=== PATIENT | male | born 1945 | race Caucasian/White ===

== ENCOUNTER → 2018-08-26 | Outpatient (CLI) | END | disposition home or self-care (01) ==

== ENCOUNTER 2018-12-27 13:58 | Inpatient (IN) | payer MEDICARE, BC ==
[~2018-12-27] VITALS: Ht 167.6 cm; Wt 62.2 kg
[~2018-12-27 13:58] MED LIST: GABA-526 PO; LISI-313 PO; TRA100 PO; ambien; atenolol; crestor; lisinopril
--- NOTE | 2018-12-27 14:19 | ERD ---
ER Documentation Chief Complaint Chief Complaint Trip and fall laceration to right eyebrow and back of head. No KO HPI The patient is a 73-year-old male, presenting to the ER because he tripped and fell, hit the right side of the head and the face on the floor shortly prior to arrival. He denies syncope, near syncope, blurred vision, neck pain, chest pain, dyspnea, abdominal pain, vomiting, dysuria. He does not smoke nor drink Past medical history: Hypertension, dyslipidemia, CAD, history of Graves' disease, hypothyroidism, insomnia Past surgical history: CABG, bilateral eyelid surgery due to ptosis ROS All systems reviewed and are negative except as per history of present illness. Medications Home Meds Reported Medications Ropinirole Hcl* (Ropinirole Hcl*) 1 Mg Tablet, 1 MG PO BID, TAB 12/27/18 Atenolol* (Atenolol*) 25 Mg Tablet, 25 MG PO DAILY, #30 TAB 12/27/18 Discontinued Reported Medications Lisinopril* (Lisinopril*) 5 Mg Tablet, 5 MG PO DAILY 03/02/13 Trazodone Hcl* (Trazodone Hcl*) 100 Mg Tablet, 200 MG PO HS, #1 03/02/13 Gabapentin* (Gabapentin*) 600 Mg Tablet, 600 MG PO HS 03/02/13 [ambien] No Conflict Check 02/27/13 [crestor] No Conflict Check 02/27/13 [lisinopril] No Conflict Check 02/27/13 [atenolol] No Conflict Check 02/27/13 Allergies Allergies: Coded Allergies: rosuvastatin calcium (Verified Adverse Reaction, Severe, RHABDOMYOLISIS, 12/27/18) PMhx/Soc History of Surgery: Yes (multiple bypass surgeries) Anesthesia Reaction: No Hx Neurological Disorder: No Hx Respiratory Disorders: No Hx Cardiac Disorders: Yes (multiple bypass surgeries, hyperthyroid) Hx Psychiatric Problems: No Hx Alcohol Use: No Hx Substance Use: No Hx Tobacco Use: No Smoking Status: Never smoker Physical Exam Vitals Vital Signs Date Temp Pulse Resp B/P (MAP) Pulse Ox O2 O2 Flow FiO2 Time Delivery Rate 12/27/18 53 14 152/76 100 Nasal 2.0 16:13 (101) Cannula 12/27/18 53 17 167/86 100 Room Air 15:11 (113) 12/27/18 97.9 52 18 161/89 99 14:07 (113) Physical Exam Const: No acute distress. Head: Atraumatic. All right occipital hematoma, no laceration Eyes: Normal Conjunctiva. Right upper eyelid 4 cm laceration with mild bleeding, no nystagmus ENT: Normal External Ears, Nose and Mouth. Neck: Full range of motion. No meningismus. Resp: Clear to auscultation bilaterally. Cardio: Regular rate and rhythm. Abd: Soft, non distended, normal bowel sounds, non tender. Skin: No petechiae or rashes. Back: No midline or flank tenderness. Ext: No cyanosis, or edema. Neur: Awake and alert. No focal deficit Psych: Normal Mood and Affect. Result Diagram: 12/27/18 1520 12/27/18 1520 Results 24 hrs Laboratory Tests Test 12/27/18 15:20 White Blood Count 6.7 10^3/ul Red Blood Count 4.44 10^6/ul Hemoglobin 13.7 g/dl Hematocrit 41.4 % Mean Corpuscular Volume 93.2 fl Mean Corpuscular Hemoglobin 30.9 pg Mean Corpuscular Hemoglobin Concent 33.1 g/dl Red Cell Distribution Width 11.7 % Platelet Count 210 10^3/UL Mean Platelet Volume 10.0 fl Immature Granulocytes % 0.400 % Neutrophils % 71.3 % Lymphocytes % 18.3 % Monocytes % 6.3 % Eosinophils % 2.8 % Basophils % 0.9 % Nucleated Red Blood Cells % 0.0 /100WBC Immature Granulocytes # 0.030 10^3/ul Neutrophils # 4.8 10^3/ul Lymphocytes # 1.2 10^3/ul Monocytes # 0.4 10^3/ul Eosinophils # 0.2 10^3/ul Basophils # 0.1 10^3/ul Nucleated Red Blood Cells # 0.0 10^3/ul Prothrombin Time 12.7 Sec Prothrombin Time Ratio 1.0 INR International Normalized Ratio 0.94 Activated Partial Thromboplast Time 27.2 Sec Sodium Level 137 mmol/L Potassium Level 5.1 mmol/L Chloride Level 98 mmol/L Carbon Dioxide Level 30 mmol/L Anion Gap 9 Blood Urea Nitrogen 26 mg/dl Creatinine 1.67 mg/dl Est Glomerular Filtrat Rate mL/min mL/min Glucose Level 119 mg/dl Calcium Level 9.5 mg/dl Current Medications Medications Dose Sig/Harrison Start Time Status Last (Trade) Ordered Route PRN Stop Time Admin Dose Reason Admin Diphtheria/ 0.5 ml ONCE ONCE 12/27/18 DC 12/27/18 Tetanus/Acell IM* 15:00 15:10 Pertussis 12/27/18 15:01 (Adacel) Ondansetron 4 mg ONCE STAT 12/27/18 DC 12/27/18 HCl (Zofran IV 14:58 15:09 Inj) 12/27/18 14:59 Sodium 1,000 ml ONCE STAT 12/27/18 DC Chloride IRR 16:35 (NS (Irrig)) 12/27/18 16:36 Lidocaine/ 20 ml ONCE STAT 12/27/18 DC Epinephrine INJ 16:35 (Xylocaine 12/27/18 16:36 2%/ Epi Mpf(Sdv)) Procedures/[place] [address] Radiology Main Line: [phone] DIAGNOSTIC IMAGING REPORT Patient: ZEN COE : 1945 Age: 73 Sex: M MR #: [id number] DOS: 12/27/18 1407 Ordering MD: KEILA THOMSON MD Location: E/R Room/Bed: PROCEDURE: Noncontrast CT Head. CLINICAL INDICATION: Trauma. Status post fall. TECHNIQUE: Noncontrast CT of the head was obtained. The administered radiation dose was CTDI vol = 39.49 mGy, DLP = 634.23 mGy-cm. One or more of the following dose reduction techniques were used: Automated exposure control, Adjustment of the mA and/or kV according to patient size, or Use of iterative reconstruction technique. DICOM images are available. COMPARISON: There are no similar studies submitted for comparison. FINDINGS: There is mild to moderate generalized cerebral volume loss. There is minimal periventricular hypoattenuation suggesting chronic microvascular ischemic changes. There are moderate vascular calcifications within the intracranial carotid arteries. There is no loss of ire[place]-white differentiation to suggest acute territorial i nfarction. There is an acute right tentorial subdural hemorrhage measuring up to 2 mm (image 82 series 601). No midline shift is identified. The orbits are within normal limits. There is mild to moderate bilateral ethmoid sinus mucosal thickening. There is mild left sphenoid sinus mucosal thickening. There is left maxillary sinus mucoperiosteal thickening suggesting chronic sinusitis/osteitis. There is right supraorbital scalp subcutaneous hematoma. No destructive osseous lesion is identified. IMPRESSION: 1. Acute 2 mm right tentorial subdural hemorrhage. 2. Mild to moderate generalized cerebral volume loss. 3. Minimal chronic microvascular ischemic changes. 4. There is right supraorbital scalp subcutaneous hematoma. Further findings as detailed above. Critical findings were discussed with Dr. Brooks on 12/27/2018 at 2:55 PM. RPTAT: PP .Romaine Akins MD, Date Time Electronically viewed and signed by .Romaine Akins MD, MD on 12/27/2018 14:58 .F/ CC: KEILA THOMSON MD [phone] [place] [address] Radiology Main Line: [phone] DIAGNOSTIC IMAGING REPORT Patient: ZEN COE : 1945 Age: 73 Sex: M [id number] [id number] DOS: 12/27/18 1407 Ordering MD: KEILA THOMSON MD Location: E/R Room/Bed: PROCEDURE: CT Cervical Spine without contrast. CLINICAL INDICATION: Neck pain. Trauma. TECHNIQUE: Noncontrast CT of the cervical spine was performed with axial images. Coronal and sagittal images were also performed. The administered radiation dose was CTDI vol = 22.32 mGy, DLP = 594.11 mGy-cm. One or more of the following dose reduction techniques were used: Automated exposure control, Adjustment of the mA and/or kV according to patient size, or Use of iterative reconstruction technique. DICOM images are available. COMPARISON: There are no similar studies submitted for comparison. FINDINGS: There is reversal of the cervical lordosis suggesting muscle spasm and/or degenerative changes. The vertebral body heights are maintained. There is no destructive osseous lesion. No acute fracture is identified. C2-C3 : There is moderate disc space narrowing. There is 1 mm circumferential disc osteophyte complex without spinal canal stenosis. There is severe left and moderate facet arthropathy and bilateral uncovertebral hypertrophy causing se paula left with mild to moderate right foraminal stenosis. This affects the exiting left C3 nerve root. C3-C4 : There is severe disc space narrowing. There is trace anterolisthesis a broad-based pseudo disc osteophyte complex with mild to moderate spinal canal stenosis. There is moderate facet arthropathy and bilateral uncovertebral hypertrophy causing severe bilateral foraminal stenosis. This affects the exiting bilateral C4 nerve roots. C4-C5 : There is severe disc space narrowing. There is trace retrolisthesis with a broad-based disc osteophyte complex impinging the spinal cord with severe spinal canal stenosis. There is moderate facet arthropathy and bilateral uncovertebral hypertrophy causing severe bilateral foraminal stenosis. This affects the exiting bilateral C5 nerve roots. C5-C6 : There is severe disc space narrowing. There is a 3 mm broad-based disc osteophyte complex impinging the spinal cord with severe spinal canal stenosis. There is moderate facet arthropathy and bilateral uncovertebral hypertrophy causing severe bilateral foraminal stenosis. This affects the exiting bilateral C6 nerve roots. C6-C7 : There is severe disc space narrowing. There is a 3 mm circumferential disc osteophyte complex impinging the spinal cord with severe spinal canal stenosis. There is moderate facet arthropathy and bilateral uncovertebral hypertrophy causing severe bilateral foraminal stenosis. This affects the exiting bilateral C7 nerve roots. C7-T1 : There is no disc herniation or spinal canal stenosis. There is mild bilateral facet arthropathy without bilateral foraminal stenosis. Sternotomy wires are noted. IMPRESSION: 1. No acute fracture or subluxation. 2. Multilevel spinal canal stenosis with severe C4-C5, C5-C6, and C6-C7 spinal canal stenosis. There is limited evaluation of the spinal cord on CT. If clinically concerned for spinal cord contusion, noncontrast MRI of the cervical spine may be performed as clinically warranted. 3. Multilevel bilateral foraminal stenosis affecting the exiting left T3, bilateral C4, bilateral C5, bilateral C6, and bilateral C7 nerve roots as detailed above. 4. Reversal of the cervical lordosis suggesting muscle spasm and/or degenerative changes. Further findings as detailed above. RPTAT: PP .Romaine Akins MD, MD Date Time Electronically viewed and signed by .Romaine Akins MD, MD on 12/27/2018 15:12 .F/ CC: KEILA THOMSON MD [id number] [place] [address] Radiology Main Line: [phone] DIAGNOSTIC IMAGING REPORT Patient: ZEN COE : 1945 Age: 73 Sex: M MR #: [id number] DOS: 12/27/18 1407 Ordering MD: KEILA THOMSON MD Location: E/R Room/Bed: PROCEDURE: Noncontrast CT facial bones. CLINICAL INDICATION: Trauma. Status post fall. TECHNIQUE: Noncontrast CT of the facial bones was obtained. Coronal and sagittal re-formations were provided. The administered radiation dose was CTDI vol = 29.33 mGy, DLP = 559.96 mGy-cm. One or more of the following dose reduction techniques were used: Automated exposure control, Adjustment of the mA and/or kV according to patient size, or Use of iterative reconstruction technique. DICOM images are available. COMPARISON: There are no similar studies submitted for comparison. FINDINGS: OSSEOUS STRUCTURES: There is no acute fracture. No destructive osseous lesion is identified. ORBITS: The bilateral globes are intact. There is no orbital hematoma. SINUSES: There is mild to moderate bilateral ethmoid sinus mucosal thickening. There is mild left sphenoid sinus mucosal thickening. There is left maxillary sinus mucoperiosteal thickening suggesting chronic sinusitis. There is a nasal septal defect. The patient is status post bilateral uncinectomies/middle turbinectomies. SKULL: Please refer to the noncontrast CT of the head report from the same day. IMPRESSION: 1. No acute fracture. 2. The bilateral globes are intact without orbital hematoma. 3. Right supraorbital scalp subcutaneous hematoma. 4. Nasal septal defect. The patient is status post bilateral uncinectomies/middle turbinectomies. Correlate clinically. 5. Chronic left maxillary sinusitis/osteitis. Further findings as detailed above. RPTAT: PP .Romaine Akins MD, Date Time Electronically viewed and signed by .Romaine Akins MD, on 12/27/2018 15:05 .F/ CC: KEILA THOMSON MD [phone] MEDICAL MAKING DECISION: The patient is a 73-year-old male, presenting with acute subdural hematoma, acute right eyelid laceration and acute scalp hematoma, acute kidney injury. He was treated with Tdap IM and Zofran IV for nausea The differential diagnoses considered include but are not limited to subarachnoid hemorrhage, occult trauma, CVA, meningitis, encephalitis, hypertension, tension, migraine, cluster, narcotic withdrawal, cervical spine disease. Consultation: I discussed the patient with the on-call neurosurgeon Dr. Ordoñez at 3:25 PM, who was made aware of the lab, the treatment and the patient conditi on. He recommended admitting the patient to telemetry for 24 hours observation Laceration Repair by me: Anesthesia: 1% with epi lidocaine locally Location: rt upper eyelid Tendon/Joint/Nerves: No injury Foreign body: None detected after copious irrigation and exploration Technique: Simple Interrupted Sutures Complexity: No subcutaneous sutures/mucosal repair/edge excision Post Closure Length: 4cm Patient's bleeding was easily controlled in the department and there is no ind ication of anemia. No evidence of compartment syndrome, neurologic injury, vascular injury, open joint, tendon laceration, or foreign body. Patient is appropriate for outpatient follow up. 48 hour wound check. Scar minimization instructions given. Departure Diagnosis: Primary Impression: Subdural hematoma Additional Impressions: Eyelid laceration, right GMEA (acute kidney injury) Anemia Condition: Stable Comments I discussed the findings with the patient. I discussed the patient with his physician Dr. Carrera at 4:10 PM. who was made aware of the lab, the tr eatment, the patient condition. The patient is admitted to Tel Obs Disclaimer: Inadvertent spelling and grammatical errors are likely due to EHR/dictation software use and do not reflect on the overall quality of patient care. Also, please note that the electronic time recorded on this note does not necessarily reflect the actual time of the patient encounter. NNAMDI MALCOLM MD Dec 27, 2018 14:19
[2018-12-27] MEDS ORDERED: ATEN-51 PO (14:23)
[2018-12-27] MEDS ORDERED: ROPI1TAB PO (14:23)
[2018-12-27] MEDS ORDERED: ONDANSETRON 4 MG INJ IV STA (14:58)
[2018-12-27] MEDS ORDERED: DIPHTH/TET/ACEL PERTUSS (ADULT) 0.5 ML VIAL IM* ONE (15:00)
[2018-12-27] MEDS ORDERED: LIDOCAINE 2%/EPI MPF (SDV) 20 ML VIAL INJ STA (16:35)
[2018-12-27] MEDS ORDERED: SODIUM CHLORIDE 0.9% 1L IRRIG IRR STA (16:35)
[2018-12-27] MEDS ORDERED: 1/2 NS + KCL 20 MEQ 1,000 ML IV SCH (17:16)
[2018-12-27] MEDS ORDERED: NITROGLYCERIN (SL) 0.4 MG TAB SL PRN (17:30)
[2018-12-27] MEDS ORDERED: LORAZEPAM 2 MG INJ IV PRN (17:30)
[2018-12-27] MEDS ORDERED: ACETAMINOPHEN 325 MG TAB PO PRN (17:30)
[2018-12-27] MEDS ORDERED: ONDANSETRON 4 MG INJ IV PRN (17:30)
[2018-12-27] MEDS ORDERED: DOCUSATE SODIUM 100 MG CAP PO PRN (17:30)
[2018-12-27] MEDS ORDERED: ZOLPIDEM 5 MG TAB PO PRN (17:30)
[2018-12-27 18:46] VITALS: BP 152/75; PULSE 54; PULSE 61; RESP 18
[2018-12-27 19:50] VITALS: Ht 167.6 cm; Wt 62.2 kg
[2018-12-27 20:00] VITALS: BP 136/69; PULSE 58; PULSE 61; RESP 19
[2018-12-27] MEDS ORDERED: PREGABALIN 75 MG CAP PO ONE (21:00)
[2018-12-27] MEDS ORDERED: ROPINIROLE 1 MG TAB PO SCH ×2 (21:00)
[2018-12-27] MEDS ORDERED: traZODone 100 MG TAB PO SCH (21:00)
--- NOTE | 2018-12-27 21:35 | HP ---
DATE OF ADMISSION: 12/27/2018 HISTORY OF PRESENT ILLNESS: This is one of several [facility] admissions for this 73-year-old gentleman admitted with a chief complaint of trip and fall sustaining a laceration in his eyebrow and back of his head. The patient was reaching for something and fell and banged his head and sustained a large laceration above his right eye as well as back of his head, did not lose consciousness, did not faint or pass out, just primarily tripped on something and fell. He was brought to the emergency room at [facility], where his wounds were tended to, lacerations were sutured..A CAT scan of the brain revealed small tiny subdural hematoma approximately 2 mm right tentorial subdural hemorrhage. After review by the neurosurgeon, it was suggested that he be kept for observation overnight to make sure that it would not expand in any way to cause further problems. The patient is being admitted primarily for observation of [employer] trauma,and a subdural hematoma. . The patient was feeling well, did not have any acute issues before this fall and as in his words that he probably he probably did something stupid. His past medical and surgical history, he has had several eyelid surgeries for ptosis, also has had coronary artery bypass surgery and was hospitalized once with hyperthyroidism. Main 2 hospitalizations besides his cardiac issues were to severe rhabdomyolysis many years apart secondary to statin use. Other than that, he has not broken any significant bones and has not had no other significant medical hospitalizations in the past or any other major surgical procedures done. He has had vascular procedures done recently for femoral and lower extremity stenosis, all of which were presumably successful. His past medical history other than that is basically unremarkable. MEDICATIONS: He is currently taking the following medications: 1. Atenolol 25 mg a day. 2. Trazodone 300 mg at bedtime. 3. He is also taking Ropinirole 2 mg at bedtime. 4. Lyrica 75 mg at bedtime. 5. A variety of other preparations to help him sleep. ALLERGIES: "STATIN DRUGS", SHOULD NOT RECEIVE ANY OF THOSE. SOCIAL HISTORY: The patient is single, has no children. He does not smoke or drink alcohol, does drink coffee. Has difficulty sleeping at night and has a whole regimen he follows in order to get some sleep. REVIEW OF SYSTEMS HEENT: Currently has a fairly severe headache and his right eye is severely swollen. He normally; however, does not have that issue. CARDIORESPIRATORY: Denies any chest pain or shortness of breath. GASTROINTESTINAL: No melena or hematemesis. GENITOURINARY: Occasional urgency, frequency, but really no acute symptomatology with his tract. MUSCULOSKELETAL: Unremarkable. He has had, however, vascular symptoms of claudication, etc. of which have improved significantly with his vascular procedures. Positive for intermittent claudications which have improved significantly since his vascular procedures which were predominantly lower extremity discomfort. NEUROPSYCHIATRIC: Unremarkable. His main issue has been one of being able to sleep, which when he does not get enough sleep, does depress him. GENERAL HEALTH: Has been stable. FAMILY HISTORY: Father in his 50s of an NH. Mother in her 80s of "old age." There is a strong family history of diabetes and heart as well as hypertension, stroke, no cancer to his knowledge. PHYSICAL EXAMINATION: VITAL SIGNS: The patient's blood pressure was 154/77, pulse was 55 and regular, respirations were 18, temperature 97.9, pulse ox 100% on nasal cannula had been 100% on room air prior to that. HEAD, EYES, NOSE AND THROAT: Head revealed of his head trauma with both eyes closed and the large ecchymotic, swollen area above the right eye, including the right eyelid and further down. Otherwise, no other evidence of trauma was noted and the left eye appeared to be normal. When the patient opened his eyes: The pupils appeared to be equal, reactive to light and accommodation. Fundi were poorly visualized. Tympanic membranes were negative. Nose was negative. Mouth was unremarkable. Fair oral hygiene was present. NECK: Supple without any rigidity. Trachea is midline. Thyroid was unremarkable. Neck veins were flat. Carotid pulses were equal. BACK: Not fully examined, but unremarkable in the past. CHEST: Symmetrical scar from sternotomy was noted. LUNGS: Clear. HEART: Revealed a regular rhythm without any significant murmurs, rubs, or gallops. ABDOMEN: Soft. Bowel sounds were noted. No organomegaly, masses, or tenderness. GENITALIA: Normal male external genitalia. RECTAL AND PROSTATIC: Done within the year, revealed mild prostatic hypertrophy, otherwise unremarkable. EXTREMITIES: Did not reveal any clubbing, edema or cyanosis. There was a spot on his right elbow which was a little tender to motion. Peripheral pulses were physiologic. Peripheral pulses in the upper extremities were normal. Lower extremities were somewhat diminished. SKIN: Moist and warm without any obvious eruptions. NEUROLOGIC: Grossly intact. IMPRESSION: 1. Head trauma, predominantly above the right eye with a small 2 mm subdural and right tentorial subdural hemorrhage. 2. Coronary artery disease status post coronary artery bypass surgery. 3. Hyperlipidemia. 4. Peripheral vascular disease. 5. Thyroid disease. 6. Recent stable health. DISCUSSION: Review of laboratory and other data revealed the following: The patient's CBC was normal. His chemistries were normal other than a minimal elevation of creatinine at 1.67. Glucose and rest of the electrolytes were normal. His coags were normal as well. He had multiple CAT scans which did not reveal any acute abnormalities other than one of the brain which revealed there is a small subdural. Plan is to admit the patient for observation. We will continue his prehospitalization medications and hopefully repeat his CAT scan in the morning and if it is negative, or has not worsened, he will be discharged. CONDITION ON ADMISSION: Stable. PROGNOSIS: Obviously dependent upon ultimate diagnosis. Dictated By: RIDDHI FULTON/KATHY Conf#: [id number] DID#: [id number] NAT
--- NOTE | 2018-12-27 22:16 | CONS ---
DATE OF ADMISSION: 12/27/2018 DATE OF CONSULTATION: 12/27/2018 REQUESTING PHYSICIAN: Dr. Pool INDICATION FOR CONSULTATION: Subdural hematoma. HISTORY OF PRESENT ILLNESS: The patient is a 73-year-old male with a history of cardiac bypass surge ry over 25 years ago, who tripped and fell. The patient states he does not recollect falling or whet her he lost consciousness or not, but remembers being in the ambulance. He states he had some initia l nausea but currently denies any nausea, vomiting, numbness, tingling, weakness, neck or low back pa in. He denies any headache. His main complaint is just of having some dizziness. He denies any bow el or bladder issues. PAST MEDICAL HISTORY: Significant for hypertension, hyperlipidemia, CAD, Graves disease, hypothyroid ism and insomnia. PAST SURGICAL HISTORY: Significant for CABG and bilateral eyelid surgery due to ptosis. REVIEW OF SYSTEMS: A 12-point review of systems performed. Pertinent positives and negatives listed in the History of Present Illness and below. CONSTITUTIONAL: Denies any fever, chills or weight loss. HEMATOLOGIC: Denies any history of easy bruising or bleeding. HOME MEDICATIONS: Include: 1. Ropinirole. 2. Atenolol. 3. Trazodone. 4. Lyrica. 5. Medical marijuana. These are used to help him sleep. ALLERGY: ROSUVASTATIN. PAST SURGICAL HISTORY: Per HPI. FAMILY HISTORY: No reported inherited bleeding disorders. PHYSICAL EXAMINATION: VITAL SIGNS: The patient's temperature is 98.2, pulse 61, respirations 18, blood pressure 152/75, sa turating 95% on room air. GENERAL: The patient is an elderly male lying in the hospital bed in no acute distress. HEAD AND NECK: Normocephalic. He has got a right periorbital ecchymosis. He has no otorrhea or rhi norrhea. His neck is supple, nontender to palpation paraspinally or midline. He has no Lhermitte or Spurling sign. CARDIAC: Regular rate and rhythm. CHEST: Clear to auscultation. ABDOMEN: Nontender, nondistended, soft. EXTREMITIES: No clubbing, cyanosis or edema. NEUROLOGIC: The patient is awake, alert, oriented x3 with fluent speech. He follows commands readil y and appropriately. He has normal attention and concentration and intact remote, immediate and rece nt memory except for events immediately surrounding his trauma. Cranial nerves II-XII are serially t ested and are grossly intact. Specifically, II: Visual zamora grossly full to confrontation and christina ssly normal visual acuity. III, IV and : Extraocular muscles intact. Pupils equal, reactive, rou nd to light. V: Normal facial sensation bilaterally. VII: Face symmetrical dynamically and static ally. VIII: Grossly normal auditory acuity to normal voice and finger rub. IX/X: Symmetrical [place] raise. XI: A 5/5 sternocleidomastoid. XII: No tongue deviation when protruded. His motor exam is 5/5, bilateral upper and lower extremities. He does not have a pronator drift. Cerebellar: He had no ataxia or dysmetria to lmeovd-tf-fyqkoa or oztcls-zp-cdds-to-finger testing. Sensation was gr ossly intact to light touch. Deep tendon reflexes were 1+ in his biceps, triceps, brachioradialis. He seemed to have slightly brisk deep tendon reflexes in the patella, perhaps 3+, and 2+ ankle reflex es. No clonus, Babinski or Carlos sign. Gait not assessed secondary to condition. LABORATORY DATA: White count 6.7, hemoglobin 13.7, platelets 210. Coagulation profile was within no rmal limits. Sodium 137, BUN and creatinine 26 and 1.67, a glucose of 119. REVIEW OF RADIOGRAPHIC RESULTS: I reviewed the patient's CT of the brain. This showed a 2 mm right tentorial subdural hematoma but no evidence of other bleed or mass effect or shift or intraventricula r or intraparenchymal bleed. There is a right supraorbital subcutaneous scalp hematoma. CT of the f steven showed no evidence of fractures. The patient's CT of the cervical spine showed no evidence of fr acture or subluxation. The patient does have cervical stenosis seen on the CT scan. ASSESSMENT AND PLAN: A 73-year-old male status post fall with traumatic subdural hematoma. I discus sed patient's signs, symptoms, physical exam and radiographic findings with him. I doubt this hemato ma will likely progress in size or require any type of surgical treatment. The patient does, however , take half a baby aspirin daily, though again, I still doubt this will likely cause any significant bleeding especially with the bleeding location that this is. Nevertheless, the patient has been admi tted for observation and a repeat CT scan should be performed in the morning. The patient's main com plaint is dizziness and I believe should be evaluated by Physical Therapy prior to discharge. I disc ussed postconcussive symptoms with the patient and stated that he likely had a concussion and discuss ed behavioral modifications. The patient's son was at the bedside with the patient, and he and the p atient expressed understanding and agreement with this plan of care. Dictated By: ROBERTO CARLOS HENDRIX MD LG/KATHY Conf#: [id number] DID#: [id number] CC: RIDDHI WINTER MD;*End*
[2018-12-27 23:48] VITALS: BP 133/77; PULSE 65; RESP 19
[2018-12-28] VITALS (9 sets, daily range): BP systolic 121–143; BP diastolic 66–68; PULSE 48–66; RESP 18–19
--- NOTE | 2018-12-28 08:21 | PN ---
Date/Time of Note Date/Time of Note DATE: 12/28/18 TIME: 08:10 Assessment/Plan VTE Prophylaxis Risk score (from N[place])>0 risk: 4 [place] [facility] [place] contraindicated: low risk/ambulating Pharmacological prophylaxis: NA/contraindicated Pharm contraindication: bleeding Lines/Catheters [facility] Sal[facility] Urinary Cath still in place: No Assessment/Plan Hospital Course patient remains alert without focal neurological abnormalities .eye lid right swollen and shut post laceration Assessment/Plan plan advance diet as tolerated,cat of brain this AM to evaluate Subdural Hematome. PT re ambulation and strength ambulated with assist to bathroom today.condition stable this AM. Result Diagram: 12/28/18 0540 12/28/18 0540 Results 24hrs Laboratory Tests Test 12/27/18 15:20 12/28/18 05:40 White Blood Count 6.7 7.9 Red Blood Count 4.44 L 3.89 L Hemoglobin 13.7 L 12.2 L Hematocrit 41.4 L 36.6 L Mean Corpuscular Volume 93.2 94.1 Mean Corpuscular Hemoglobin 30.9 31.4 Mean Corpuscular Hemoglobin Concent 33.1 33.3 Red Cell Distribution Width 11.7 11.7 Platelet Count 210 180 Mean Platelet Volume 10.0 9.9 Immature Granulocytes % 0.400 0.300 Neutrophils % 71.3 73.6 Lymphocytes % 18.3 16.3 Monocytes % 6.3 6.9 Eosinophils % 2.8 2.3 Basophils % 0.9 0.6 Nucleated Red Blood Cells % 0.0 0.0 Immature Granulocytes # 0.030 0.020 Neutrophils # 4.8 5.8 Lymphocytes # 1.2 1.3 Monocytes # 0.4 0.6 Eosinophils # 0.2 0.2 Basophils # 0.1 0.1 Nucleated Red Blood Cells # 0.0 0.0 Prothrombin Time 12.7 Prothrombin Time Ratio 1.0 INR International Normalized Ratio 0.94 Activated Partial Thromboplast Time 27.2 Sodium Level 137 137 Potassium Level 5.1 4.7 Chloride Level 98 103 Carbon Dioxide Level 30 28 Anion Gap 9 6 Blood Urea Nitrogen 26 H 21 H Creatinine 1.67 H 1.57 H Est Glomerular Filtrat Rate mL/min Glucose Level 119 117 Calcium Level 9.5 8.9 Hemoglobin A1c 4.9 Total Bilirubin 0.4 Direct Bilirubin 0.00 Indirect Bilirubin 0.4 Aspartate Amino Transf (AST/SGOT) 26 Alanine Aminotransferase (ALT/SGPT) 23 Alkaline Phosphatase 84 Total Protein 6.3 Albumin 3.4 Globulin 2.90 Albumin/Globulin Ratio 1.17 Subjective 24 Hr Interval Summary Constitutional: improved Eyes: other (right eye swollen 2nd to trauma vision intact) ENT: no complaints Respiratory: no complaints Cardiovascular: no complaints Gastrointestinal: no complaints Genitourinary: no complaints Musculoskeletal: restricted range of motion Skin: bruising, laceration Neurologic: dizziness Endocrine: no complaints Lymphatic: no complaints Psychological: no complaints Immunologic: no complaints Exam/Review of Systems Exam Vitals Vital Signs Date Temp Pulse Resp B/P (MAP) Pulse Ox O2 O2 Flow FiO2 Time Delivery Rate 12/28/18 98.1 48 18 138/66 98 07:13 (90) 12/27/18 Room Air 18:46 12/27/18 2.0 17:43 Intake and Output 12/27/18 12/27/18 12/28/18 1515:00 23:00 07:00 IntakeIntake Total 1100 ml OutputOutput Total 425 ml BalanceBalance 675 ml Constitutional: alert, oriented Psych: no complaints Head: normocephalic, lacerations Eyes: PERRL, other (right eye swollen shut post laceratin and trauma) ENMT: nl external ears & nose Neck: supple Respiratory: clear to auscultation Cardiovascular: regular rate and rhythm Gastrointestinal: soft Genitourinary - Male: nl penis Musculoskeletal: nl extremities to inspection Extremities: normal pulses Neurological: STARCH CRAB II-XII intact, nl mental status, nl speech, nl strength Skin: nl turgor, ecchymosis Results Results 24hrs Laboratory Tests Test 12/27/18 15:20 12/28/18 05:40 White Blood Count 6.7 7.9 Red Blood Count 4.44 L 3.89 L Hemoglobin 13.7 L 12.2 L Hematocrit 41.4 L 36.6 L Mean Corpuscular Volume 93.2 94.1 Mean Corpuscular Hemoglobin 30.9 31.4 Mean Corpuscular Hemoglobin Concent 33.1 33.3 Red Cell Distribution Width 11.7 11.7 Platelet Count 210 180 Mean Platelet Volume 10.0 9.9 Immature Granulocytes % 0.400 0.300 Neutrophils % 71.3 73.6 Lymphocytes % 18.3 16.3 Monocytes % 6.3 6.9 Eosinophils % 2.8 2.3 Basophils % 0.9 0.6 Nucleated Red Blood Cells % 0.0 0.0 Immature Granulocytes # 0.030 0.020 Neutrophils # 4.8 5.8 Lymphocytes # 1.2 1.3 Monocytes # 0.4 0.6 Eosinophils # 0.2 0.2 Basophils # 0.1 0.1 Nucleated Red Blood Cells # 0.0 0.0 Prothrombin Time 12.7 Prothrombin Time Ratio 1.0 INR International Normalized Ratio 0.94 Activated Partial Thromboplast Time 27.2 Sodium Level 137 137 Potassium Level 5.1 4.7 Chloride Level 98 103 Carbon Dioxide Level 30 28 Anion Gap 9 6 Blood Urea Nitrogen 26 H 21 H Creatinine 1.67 H 1.57 H Est Glomerular Filtrat Rate mL/min Glucose Level 119 117 Calcium Level 9.5 8.9 Hemoglobin A1c 4.9 Total Bilirubin 0.4 Direct Bilirubin 0.00 Indirect Bilirubin 0.4 Aspartate Amino Transf (AST/SGOT) 26 Alanine Aminotransferase (ALT/SGPT) 23 Alkaline Phosphatase 84 Total Protein 6.3 Albumin 3.4 Globulin 2.90 Albumin/Globulin Ratio 1.17 Imaging Imaging CAT scan of brain pending today Medications Medication Current Medications Atenolol (Tenormin) 25 mg DAILY PO ; Start 12/28/18 at 09:00 Potassium Chloride/Sodium Chloride 1,000 ml @ 50 mls/hr Q20H IV Last administered on 12/27/18at 18:45; Admin Dose 50 MLS/HR; Start 12/27/18 at 17:16 Lorazepam (Ativan) 0.5 mg Q6H PRN IV .ANXIETY; Start 12/27/18 at 17:30 Ondansetron HCl (Zofran Inj) 4 mg Q6H PRN IV NAUSEA/VOMITING; Start 12/27/18 at 17:30 Nitroglycerin (Nitroglycerin (Sl Tab) 0.4 Mg) 1 tab Q5M PRN SL .CHEST PAIN; Start 12/27/18 at 17:30 Acetaminophen (Tylenol Tab) 650 mg Q6H PRN PO .PAIN 1-3 OR TEMP; Start 12/27/18 at 17:30 Zolpidem Tartrate (Ambien) 5 mg QHS PRN PO .INSOMNIA; Start 12/27/18 at 17:30 Docusate Sodium (Colace) 100 mg Q12H PRN PO .CONSTIPATION; Start 12/27/18 at 17:30 Ropinirole HCl (Requip) 2 mg HS PO Last administered on 12/27/18at 23:00; Admin Dose 2 MG; Start 12/27/18 at 21:00 Trazodone HCl (Desyrel) 300 mg HS PO Last administered on 12/27/18at 23:01; Admin Dose 300 MG; Start 12/27/18 at 21:00 RIDDHI WINTER MD Dec 28, 2018 08:21
[2018-12-28] MEDS ORDERED: ATENOLOL 25 MG TAB PO SCH (09:00)
--- NOTE | 2018-12-28 14:52 | PDOCDIS ---
Discharge Instructions DIAGNOSIS Discharge Diagnosis subdural hematoma stable head trauma laceration right upper eyelid post suture hyperlipidemia C.A.D. s/p CABS surgery thyroid disease CONDITION 2 [id number] Patient Condition: Nauab7h Fair HOME CARE INSTRUCTIONS: [id number] Diet Instructions: [id number] Regular ACTIVITY: [id number] Activity Restrictions: [id number] Slowly Increase Activity [id number] Bathing Restrictions: [id number] Sponge Bath FOLLOW UP/APPOINTMENTS Follow-up Plan office visit next thursday call SCHOOL/WORK RELEASE May return to School/Work on: Dec 30, 2018 RIDDHI WINTER MD Dec 28, 2018 14:52
--- NOTE | 2018-12-28 16:23 | CONS ---
Assessment/Plan Assessment/Plan Assessment/Plan (Daily) 73 year-old male with traumatic subdural hematoma and cervical stenosis. Stable Ct. Post-concussive symptoms improving. Stable for D/C from NS perspective. Discuss cervical stenosis, cervical myelopathy and the natural history and surgical treatment with the patient, may have mild signs with patellar hyperreflexia but not otherwise clearly symptomatic. Advised to f/u in office in 3 months for PE surveillance and sooner if develops any new or worsening symptoms. Consultation Date/Type/Reason Admit Date/Time Dec 28, 2018 at 07:12 Initial Consult Date Type of Consult Neurosurgery Date/Time of Note DATE: 12/28/18 TIME: 16:18 24 HR Interval Summary Free Text/Dictation Patient doing better. Only reported minimal dizziness when first sitting up right. Denies nausea, headache, vomiting, numbness, tingling, or weakness. Exam/Review of Systems Exam Vitals Vital Signs Date Temp Pulse Resp B/P (MAP) Pulse Ox O2 O2 Flow FiO2 Time Delivery Rate 12/28/18 98.0 54 18 143/68 96 15:21 (93) 12/27/18 Room Air 18:46 12/27/18 2.0 17:43 Intake and Output 12/27/18 12/27/18 12/28/18 1515:00 23:00 07:00 IntakeIntake Total 1100 ml OutputOutput Total 425 ml BalanceBalance 675 ml Constitutional: alert, oriented, well developed Head: other (n) Eyes: other (rigth periorbital ecchymosis and swelling decreasing) ENMT: other (no otorrhea or rhinorrhea) Neurological: MERCHANDISING INTERN II-XII intact, nl mental status, nl speech, nl strength, other (no pronator drift) Results Result Diagram: 12/28/18 0540 12/28/18 0540 Results 24hrs Laboratory Tests Test 12/28/18 05:40 White Blood Count 7.9 Red Blood Count 3.89 L Hemoglobin 12.2 L Hematocrit 36.6 L Mean Corpuscular Volume 94.1 Mean Corpuscular Hemoglobin 31.4 Mean Corpuscular Hemoglobin Concent 33.3 Red Cell Distribution Width 11.7 Platelet Count 180 Mean Platelet Volume 9.9 Immature Granulocytes % 0.300 Neutrophils % 73.6 Lymphocytes % 16.3 Monocytes % 6.9 Eosinophils % 2.3 Basophils % 0.6 Nucleated Red Blood Cells % 0.0 Immature Granulocytes # 0.020 Neutrophils # 5.8 Lymphocytes # 1.3 Monocytes # 0.6 Eosinophils # 0.2 Basophils # 0.1 Nucleated Red Blood Cells # 0.0 Sodium Level 137 Potassium Level 4.7 Chloride Level 103 Carbon Dioxide Level 28 Anion Gap 6 Blood Urea Nitrogen 21 H Creatinine 1.57 H Est Glomerular Filtrat Rate mL/min Glucose Level 117 Hemoglobin A1c 4.9 Calcium Level 8.9 Total Bilirubin 0.4 Direct Bilirubin 0.00 Indirect Bilirubin 0.4 Aspartate Amino Transf (AST/SGOT) 26 Alanine Aminotransferase (ALT/SGPT) 23 Alkaline Phosphatase 84 Total Protein 6.3 Albumin 3.4 Globulin 2.90 Albumin/Globulin Ratio 1.[address] head- stable, no new or worsening bleed. Tiny R tentorial subdural hematoma Medications Medication Current Medications Atenolol (Tenormin) 25 mg DAILY PO ; Start 12/28/18 at 09:00 Potassium Chloride/Sodium Chloride 1,000 ml @ 50 mls/hr Q20H IV Last administered on 12/27/18at 18:45; Admin Dose 50 MLS/HR; Start 12/27/18 at 17:16; Status Hold Lorazepam (Ativan) 0.5 mg Q6H PRN IV .ANXIETY; Start 12/27/18 at 17:30 Ondansetron HCl (Zofran Inj) 4 mg Q6H PRN IV NAUSEA/VOMITING; Start 12/27/18 at 17:30 Nitroglycerin (Nitroglycerin (Sl Tab) 0.4 Mg) 1 tab Q5M PRN SL .CHEST PAIN; Start 12/27/18 at 17:30 Acetaminophen (Tylenol Tab) 650 mg Q6H PRN PO .PAIN 1-3 OR TEMP; Start 12/27/18 at 17:30 Zolpidem Tartrate (Ambien) 5 mg QHS PRN PO .INSOMNIA; Start 12/27/18 at 17:30 Docusate Sodium (Colace) 100 mg Q12H PRN PO .CONSTIPATION; Start 12/27/18 at 17:30 Ropinirole HCl (Requip) 2 mg HS PO Last administered on 12/27/18at 23:00; Admin Dose 2 MG; Start 12/27/18 at 21:00 Trazodone HCl (Desyrel) 300 mg HS PO Last administered on 12/27/18at 23:01; Admin Dose 300 MG; Start 12/27/18 at 21:00 ROBERTO CARLOS HENDRIX MD Dec 28, 2018 16:23
--- NOTE | 2018-12-28 17:43 | DS ---
Date/Time of Note Date/Time of Note DATE: 12/28/18 TIME: 17:30 Discharge Summary Admission/Discharge Info Admit Date/Time Dec 28, 2018 at 07:12 Discharge Date/Time 12/28/2018 Discharge Diagnosis subdural hematoma stable head trauma laceration right upper eyelid post suture hyperlipidemia C.A.D. s/p CABS surgery thyroid disease Patient Condition: Fair Consults neurosurgery Procedures cat scan brain x2 Hx of Present Illness patient fell at home did not loose conscious suffered right sided deandra-orbital laceration with large ecchymotic area around right eye.CAT scan brain found small 2mm subdural hematoma right frontal area and patient was admitted for observation and treatment Hospital Course patient remains alert without focal neurological abnormalities .eye lid right swollen and shut post laceration Repeat CAT scan was unchanged .patient seen by neuro and cleared. Patient evaluated by PT able to ambulate safely at home .vital signs were stable and wants to go home. Home Meds Reported Medications Ropinirole Hcl* (Ropinirole Hcl*) 1 Mg Tablet, 1 MG PO BID, TAB 12/27/18 Atenolol* (Atenolol*) 25 Mg Tablet, 25 MG PO DAILY, #30 TAB 12/27/18 Discontinued Reported Medications Lisinopril* (Lisinopril*) 5 Mg Tablet, 5 MG PO DAILY 03/02/13 Trazodone Hcl* (Trazodone Hcl*) 100 Mg Tablet, 200 MG PO HS, #1 03/02/13 Gabapentin* (Gabapentin*) 600 Mg Tablet, 600 MG PO HS 03/02/13 [ambien] No Conflict Check 02/27/13 [crestor] No Conflict Check 02/27/13 [lisinopril] No Conflict Check 02/27/13 [atenolol] No Conflict Check 02/27/13 Follow-up Plan office visit next thursday call Primary Care Provider Thad Carrera MD Time spent on discharge: < 30 minutes (patient discharged improved will have woun checked by his opthomologist) Pending Labs Laboratory Tests Test 12/28/18 05:40 White Blood Count 7.9 10^3/ul (4.8-10.8) Red Blood Count 3.89 10^6/ul (4.70-6.10) Hemoglobin 12.2 g/dl (14.0-18.0) Hematocrit 36.6 % (42.0-52.0) Mean Corpuscular Volume 94.1 fl (82.0-101.0) Mean Corpuscular Hemoglobin 31.4 pg (29.0-33.0) Mean Corpuscular Hemoglobin Concent 33.3 g/dl (32.0-37.0) Red Cell Distribution Width 11.7 % (11.5-14.5) Platelet Count 180 10^3/UL (140-415) Mean Platelet Volume 9.9 fl (7.4-10.4) Immature Granulocytes % 0.300 % (0.001-0.429) Neutrophils % 73.6 % (39.0-77.0) Lymphocytes % 16.3 % (15.0-51.0) Monocytes % 6.9 % (0.0-11.0) Eosinophils % 2.3 % (0.0-7.0) Basophils % 0.6 % (0.0-2.0) Nucleated Red Blood Cells % 0.0 /100WBC (0.0-0.0) Immature Granulocytes # 0.020 10^3/ul (0.0-0.031) Neutrophils # 5.8 10^3/ul (1.6-7.5) Lymphocytes # 1.3 10^3/ul (0.8-2.9) Monocytes # 0.6 10^3/ul (0.3-0.9) Eosinophils # 0.2 10^3/ul (0.0-0.5) Basophils # 0.1 10^3/ul (0.0-0.1) Nucleated Red Blood Cells # 0.0 10^3/ul (0.0-0.0) Sodium Level 137 mmol/L (135-144) Potassium Level 4.7 mmol/L (3.5-5.1) Chloride Level 103 mmol/L (97-110) Carbon Dioxide Level 28 mmol/L (21-31) Anion Gap 6 (5-13) Blood Urea Nitrogen 21 mg/dl (7-20) Creatinine 1.57 mg/dl (0.61-1.24) Est Glomerular Filtrat Rate mL/min mL/min (>60) Glucose Level 117 mg/dl (70-220) Hemoglobin A1c 4.9 % (0-5.9) Calcium Level 8.9 mg/dl (8.4-10.2) Total Bilirubin 0.4 mg/dl (0.2-1.3) Direct Bilirubin 0.00 mg/dl (0.00-0.20) Indirect Bilirubin 0.4 mg/dl (0-1.1) Aspartate Amino Transf (AST/SGOT) 26 IU/L (15-46) Alanine Aminotransferase (ALT/SGPT) 23 IU/L (13-69) Alkaline Phosphatase 84 IU/L (42-121) Total Protein 6.3 g/dl (6.1-8.1) Albumin 3.4 g/dl (3.3-4.9) Globulin 2.90 g/dl (1.3-3.2) Albumin/Globulin Ratio 1.17 THAD CARRERA MD Dec 28, 2018 17:40
== END 2018-12-28 18:53 | disposition home or self-care (01) | DRG 87 ==
LOC: E/R 13:58 → TEL 16:37 → CANRESERV 16:48 → TEL 12-28 04:48 → OBSVTOIN 12-28 07:12
PROVIDERS: ADMIT Internal Medicine; ATTEND Internal Medicine
PROC: 08QNXZZ Repair Right Upper Eyelid, External Approach (ICD-10-PCS; principal; 2018-12-27)
DX: S06.5X0A Traumatic subdural hemorrhage without loss of consciousness, initial encounter (principal); W01.10XA Fall on same level from slipping, tripping and stumbling with subsequent striking against unspecified object, initial encounter; I25.10 Atherosclerotic heart disease of native coronary artery without angina pectoris; Z95.1 Presence of aortocoronary bypass graft; E78.5 Hyperlipidemia, unspecified; I73.9 Peripheral vascular disease, unspecified; E07.9 Disorder of thyroid, unspecified; S00.03XA Contusion of scalp, initial encounter; S01.111A Laceration without foreign body of right eyelid and periocular area, initial encounter; M48.02 Spinal stenosis, cervical region
CPT/HCPCS: 36415; 70450; 70486; 72125; 80048; 80053; 83036; 85025; 85610; 85730; 90471; 90715; 96374; 97116; 97161; G0378; J2405; J3480

== ENCOUNTER → 2019-01-18 | Outpatient (CLI) | payer MEDICARE, BC ==
[~2019-01-18] MED LIST changes: +ATEN-51 PO; -GABA-526 PO; -LISI-313 PO; +ROPI1TAB PO; -TRA100 PO; -ambien; -atenolol; -crestor; -lisinopril
== END | disposition home or self-care (01) ==
LOC: C/S 14:49
PROVIDERS: ATTEND Internal Medicine
DX: M25.521 Pain in right elbow (principal); R22.31 Localized swelling, mass and lump, right upper limb
CPT/HCPCS: 73200